=== PATIENT | male | born 1980 | race Caucasian/White ===

== ENCOUNTER 2024-01-17 08:39 | Emergency (ER) | payer MEDICAID ==
[~2024-01-17] VITALS: Ht 175.3 cm; Wt 91.0 kg
[2024-01-17 08:49] VITALS: O2SAT 100
[2024-01-17] MEDS: ASPIRIN 325MG EC TABLET PO ONE (09:13)
[2024-01-17 09:38] LABS: BASOPHILS % 1.2 % (0.0-2.0); EOSINOPHILS % 3.3 % (0.0-5.0); HEMATOCRIT. 47.1 % (42.0-52.0); HEMOGLOBIN. 15.9 g/dL (14.0-18.0); LYMPHOCYTES % 29.4 % (20.0-50.0); MEAN CORPUSCULAR HGB CONC 33.7 g/dL (31.0-37.0); MEAN PLATELET VOLUME 8.8 fl (7.4-10.4); MONOCYTES % 7.9 % (2.0-8.0); NEUTROPHILS % 58.2 % (40.0-76.0); PLATELET 227 x1000/uL (130-400); RED BLOOD CELL COUNT 4.95 mill/uL (4.7-6.1); RED CELL DISTRIBUTION WIDTH 14.4 % (11.6-14.6); WHITE BLOOD COUNT 4.7 x1000/uL (4.5-11.0)
[2024-01-17 09:45] LABS: CHLORIDE 103 mEq/L (98-107); POTASSIUM 3.9 mEq/L (3.5-5.1); SODIUM 135 mEq/L (136-145)
[2024-01-17 09:46] LABS: CALCIUM 9.5 mg/dL (8.7-10.4); CARBON DIOXIDE 26 mEq/L (21-32)
[2024-01-17 09:48] LABS: PARTIAL THROMBOPLASTIN TIME 23.9 sec (23.4-31.0); PROTHROMBIN TIME 10.9 sec (9.6-11.0)
[2024-01-17 09:51] LABS: GLUCOSE 72 mg/dL (70-105); UREA NITROGEN BLOOD 12 mg/dL (9-23)
[2024-01-17 10:00] VITALS: TEMP 37.00296
[2024-01-17 10:16] LABS: ETHANOL BLOOD < 10 mg/dL (<10); TROPONIN I HIGH SENSITIVITY < 4 ng/L (3.0-53)
[2024-01-17] MEDS: MAGNESIUM/ALUMINUM HYDROXIDE/SIMETHICONE 30ML UDC PO ONE (10:31)
[2024-01-17] MEDS: NITROGLYCERIN 0.4MG TABLET SL SL ONE (10:32)
[2024-01-17] MEDS: PANTOPRAZOLE 40MG DR TABLET PO ONE (10:32)
[2024-01-17 10:33] VITALS: TEMP 98.6
[2024-01-17] MEDS: ACETAMINOPHEN 325MG TABLET PO ONE (10:33)
[2024-01-17 11:15] VITALS: BP 120/52; PULSE 78; RESP 22; O2SAT 100
[2024-01-17 11:36] LABS: TROPONIN I HIGH SENSITIVITY < 4 ng/L (3.0-53)
== END 2024-01-17 11:57 | disposition home or self-care (01) ==
LOC: ER 08:39
DX: R07.9 Chest pain, unspecified (principal); F20.9 Schizophrenia, unspecified; Z91.013 Allergy to seafood; K21.9 Gastro-esophageal reflux disease without esophagitis; R07.2 Precordial pain
CPT/HCPCS: 36415; 71045; 80048; 80320; 83880; 84484; 85025; 93005; 99285; G0480